=== PATIENT | male | born 1955 | race Caucasian/White ===

== ENCOUNTER 2018-06-03 20:38 | Emergency (ER) | payer SELFPAY ==
--- NOTE | 2018-06-03 20:39 | PDOC ---
History of Present Illness - General History Source: Patient Exam Limitations: No Limitations - History of Present Illness Initial Comments: 06/03/18 21:07 The patient is a 63-year-old male with a past medical history significant for double hernia repair presents to the emergency department with L. groin pain. The patient reports about 2 weeks ago, and he was lifting the snow plower when he had an acute onset of L. groin pain that radiates down the L. Knee. The patient reports the pain is intermittent and sharp in quality, with the severity of 8/10. The patient reports the knee pain is aggravated with ambulation, with relief noted at resting and with Advil. Denies numbness, tingling, weakness, loss of sensation, chest pain or shortness of breath. The patient reports at baseline he usually has high blood pressure, which he denies following up for. Allergies: Social history: 4 glasses of wine a day, denies the use of tobacco or drugs. Medication: Baby ASA, Vitamin C, fish oil. PCP: Dr. Matson. <Yuly Concepcion - Last Filed: 06/03/18 21:07> - General History Source: Patient Exam Limitations: No Limitations <Verna Torres - Last Filed: 06/03/18 23:30> - General Chief Complaint: Pain Stated Complaint: GROIN PAIN Time Seen by Provider: 06/03/18 20:39 Past History <Yuly Concepcion - Last Filed: 06/03/18 21:07> <Verna Torres - Last Filed: 06/03/18 23:30> - Past Medical History Allergies/Adverse Reactions: Allergies Allergy/AdvReac Type Severity Reaction Status Date / Time No Known Allergies Allergy Unverified 06/03/18 20:39 Home Medications: Ambulatory Orders Amoxicillin/Potassium Clav [Augmentin 875-125 Tablet] 1 each PO Q8H 10 Days #30 tablet 06/03/18 Ascorbate Calcium [Vitamin C] 500 mg PO DAILY 06/03/18 Aspirin Coated [Ecotrin -] 81 mg PO DAILY 06/03/18 Lidocaine 5% Patch [Lidoderm Patch -] 1 patch TP DAILY PRN #30 patch 06/03/18 Methocarbamol [Robaxin -] 500 mg PO TID PRN #30 tablet 06/03/18 Naproxen Sodium 220 mg PO BID PRN #30 tablet 06/03/18 [place]-3/Dha/Epa/Fish Oil [Fish Oil 1,000 mg Softgel] 1 each PO DAILY 06/03/18 traMADol HCL [Ultram] 50 mg PO Q8H PRN #15 tablet MDD 3 06/03/18 Review of Systems - Review of Systems Able to Perform ROS?: Yes Comments:: 06/03/18 21:08 Constitutional - Pt denies Fever, Chills, weakness, HEENT: denies vision changes, sore throat Respiratory: Denies cough, sob, hemoptysis Cardiac: denies chest pain, palpitations, lightheadedness, leg swelling Abd/GI: +L. Groin pain. denies abd pain, nausea, vomiting, blood per rectum, melena, diarrhea : denies dysuria, frequency, discharge Musculoskeletal - +left knee pain. denies back pain, joint swelling skin - denies bruising, erythema, rash neurological: denies headache, numbness, focal weakness, tingling, ataxia, weakness hematologic: denies anemia, easy bruising, easy bleeding <Yuly Concepcion - Last Filed: 06/03/18 21:07> *Physical Exam - Vital Signs Last Vital Signs Temp Pulse Resp BP Pulse Ox 98.2 F 93 H 16 176/107 H 99 06/03/18 20:41 06/03/18 20:41 06/03/18 20:41 06/03/18 20:41 06/03/18 20:41 - Physical Exam Comments: 06/03/18 21:08 GENERAL: The patient is in no acute distress. ENT: Ears normal, nares patent, oropharynx clear without exudates. Moist mucous membranes. NECK: Normal range of motion, supple, no nuchal rigidity LUNGS: Breath sounds equal, clear to auscultation bilaterally. No wheezes, and no crackles. HEART: 3/6 aortic murmur, regular rate and rhythm, normal S1 and S2 without murmur, rub or gallop. ABDOMEN: soft, minimal tenderness in the LLQ, some tenderness in the groin, no bulging or hernia palpated, no testicular tenderness or swelling. EXTREMITIES: No femur or thigh tenderness. L. knee tenderness able to range with no limitation, no knee swelling or bruising. NEUROLOGICAL: Cranial nerves II through XII grossly intact. Normal speech. No focal neurological deficits. SKIN: Warm, Dry, normal turgor, no rashes or lesions noted. 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 Pt states pain was initially intermittent but then became more consistent Pain is described as sharp, severe, radiating into his left leg He is concerned that he may have a recurrent hernia s/p lifting that machine On exam: RRR, Aortic murmur Lungs clear LLQ abd tenderness (mild), no masses palpated Left groin tenderness, no hernias palpated Left testicle non tender, no swelling No rash Left thigh non tender Left knee no swelling, no bruising, no deformities, no erythema ROM nml Stable to anterior and posterior drawer Pt ambulatory with no limp Would like to evaluate for recurrent hernia with CT scan Would like to do a set of labs as this patient does not go to the doctor's office Would like to do x ray knee Pt at this point is refusing knee xray, CT, labs He would like to go home 06/03/18 21:01 I have discussed everything with patient again He is willing to stay for a work up 06/03/18 21:31 Laboratory Tests 06/03/18 21:00 Urine Blood Negative Urine Nitrite Negative Ur Leukocyte Esterase Negative 06/03/18 21:31 Knee xray no fracture or dislocation noted 06/03/18 21:38 Laboratory Tests 06/03/18 21:00 WBC 9.0 Hgb 15.9 Hct 48.8 Plt Count 213 06/03/18 21:44 Laboratory Tests 06/03/18 21:00 BUN 18 Creatinine 0.9 06/03/18 23:08 CT: HISTORY: Left lower quadrant pain COMPARISON: None. FINDINGS: There is no free air. There is mild hepatic steatosis and hepatomegaly. There are no obvious gallstones. There is no hydronephrosis. There are no renal calculi. There are small bilateral renal cysts *There are multiple sigmoid diverticuli. There is a segment of thickened sigmoid colon with adjacent pericolonic inflammatory stranding. Findings compatible with acute sigmoid diverticulitis. The appendix is normal in size. There is no evidence of appendicitis. Urinary bladder is unremarkable. There are no bladder calculi Call placed to the radiologist re: this reading to see if there is possibly an inguinal hernia Dr. Gordillo Will discharge to home No hernia appreciated Radiologist reads sigmoid diverticulitis will give Augmentin (pt drinks 4 glassses of wine daily, will avoid flagyl) Will discharge to home <Verna Torres - Last Filed: 06/03/18 23:30> *DC/Admit/Observation/Transfer - Attestations Scribe Attestion: 06/03/18 21:08 Documentation prepared by Yuly Concepcion, acting as medical record coder for Verna Torres MD. <Yuly Concepcion - Last Filed: 06/03/18 21:07> - Discharge Dispostion Decision to Admit order: No <Verna Torres - Last Filed: 06/03/18 23:30> Diagnosis at time of Disposition: Inguinal hernia, left Groin strain Qualifiers: Encounter type: initial encounter Laterality: left Qualified Code(s): S76.212A - Strain of adductor muscle, fascia and tendon of left thigh, initial encounter Diverticulitis large intestine Qualifiers: Diverticulitis bleeding: without bleeding Diverticulitis complication: without perforation or abscess Qualified Code(s): K57.32 - Diverticulitis of large intestine without perforation or abscess without bleeding - Discharge Dispostion Disposition: HOME Condition at time of disposition: Stable - Referrals Referrals: Mey Andre DO [Staff Physician] - Chun Sapp MD [Staff Physician] - - Patient Instructions Printed Discharge Instructions: DI for Groin Strain, DI for Diverticulitis, DI for Groin Hernia, DI for Knee Pain Additional Instructions: Thank you for coming in to the ER today your groin pain is likely the result of a groin strain after lifting the snow plow Please avoid heavy lifting until you are feeling better Please take Naproxen (with food or milk) in addition to Robaxin and Ultram you can apply a lidoderm patch to the area that is painful Your hernia contains fat only, no intestine (this was not discussed on your CT read) please review your CT scan it demonstrates diverticulitis you should take the antibiotics prescribed Please take a probiotic with the antibiotics - like Align or yogurt or OTC lactobacillus you MUST follow up with your 1) Primary Care physician for your Elevated blood pressure 2) The GI doctor for management of your diverticulitis 3) the orthopedist (if you want) for the knee pain
[2018-06-03 21:00] VITALS: BP 176/107; PULSE 93; TEMP 98.2; BMI 31.4
[2018-06-03] MEDS ORDERED: traMADol HCL 50 MG TABLET PO ONE (21:00)
[2018-06-03] MEDS ORDERED: SODIUM CHLORIDE 1,000 ML IV SCH (21:00)
[2018-06-03] MEDS ORDERED: traMADol HCL 50 MG TABLET ONE (21:02)
[2018-06-03 21:32] LABS: BASO % 1.1 % (0-2.0); EOS % 3.8 % (0-4.5); HEMATOCRIT 48.8 % (35.4-49); HEMOGLOBIN 15.9 GM/dl (11.7-16.9); LYMPH % 25.4 % (8-40); MCH 29.8 pg (25.7-33.7); MCHC 32.7 g/dl (32.0-35.9); MEAN CELL VOLUME 91.2 fl (80-96); MEAN PLT VOLUME 8.4 fl (7.5-11.1); MONO % 11.1 % (3.8-10.2); NEUT % 58.6 % (42.8-82.8); PLATELET COUNT 213 K/MM3 (134-434); RBC 5.35 M/mm3 (4.00-5.60)
[2018-06-03 21:39] LABS: ALK PHOS 64 U/L (45-117); ANION GAP 10 MMOL/L (8-16); BILIRUBIN,TOTAL 0.8 mg/dl (0.2-1); BLOOD UREA NITROGEN 18 mg/dl (7-18); CALCIUM 9.7 mg/dl (8.5-10); CHLORIDE 101 mmol/L (98-107); CO2 27 mmol/L (21-32); CREATININE 0.9 mg/dl (0.55-1.3); GLUCOSE,RANDOM 125 mg/dl (74-106); POTASSIUM 4.1 mmol/L (3.5-5.1); SGOT/AST 19 U/L (15-37); SGPT/ALT 21 U/L (13-61); SODIUM 138 mmol/L (136-145); TOT PROT 6.9 g/dl (6.4-8.2)
== END 2018-06-03 23:37 | disposition home or self-care (01) ==
LOC: FER 20:38
PROC: 3E0337Z Introduction of Electrolytic and Water Balance Substance into Peripheral Vein, Percutaneous Approach (ICD-10-PCS; principal; 2018-06-03)
DX: S76.212A Strain of adductor muscle, fascia and tendon of left thigh, initial encounter (principal); K57.32 Diverticulitis of large intestine without perforation or abscess without bleeding; K40.90 Unilateral inguinal hernia, without obstruction or gangrene, not specified as recurrent; X58.XXXA Exposure to other specified factors, initial encounter; Y93.89 Activity, other specified; Y92.89 Other specified places as the place of occurrence of the external cause
CPT/HCPCS: 36415; 73562-TC-LT-FY; 74177-TC; 80053; 81003; 85025; 87086; 99282-25; J7030

== ENCOUNTER 2022-01-26 23:18 | Emergency (ER) | payer OTHER ==
[2022-01-26 23:27] VITALS: BP 165/102; PULSE 102; RESP 18; TEMP 97.8; BMI 32.0
== END 2022-01-26 23:39 | disposition home or self-care (01) ==
LOC: FER 23:18
DX: R22.0 Localized swelling, mass and lump, head (principal)
CPT/HCPCS: 99282-25

== ENCOUNTER 2022-02-01 00:36 | Emergency (ER) | payer OTHER ==
[2022-02-01] MEDS ORDERED: IBUPROFEN 600 MG TABLET (FP) PO ONE ×2 (01:01→02:00)
[2022-02-01 01:53] LABS: BASO % 0.6 % (0-2.0); EOS % 1.1 % (0-4.5); HEMATOCRIT 44.8 % (35.4-49); HEMOGLOBIN 14.8 GM/dL (11.7-16.9); LYMPH % 34.3 % (8-40); MCH 28.3 pg (25.7-33.7); MEAN CELL VOLUME 85.9 fl (80-96); MEAN PLT VOLUME 7.4 fl (7.5-11.1); MONO % 7.3 % (3.8-10.2); NEUT % 56.7 % (42.8-82.8); PLATELET COUNT 266 10^3/uL (134-434); RBC 5.21 M/mm3 (4.00-5.60); WHITE BLOOD COUNT 10.6 K/mm3 (4.0-10.0)
[2022-02-01 02:09] LABS: CALCIUM 9.8 mg/dL (8.5-10.1)
[2022-02-01 02:10] LABS: ALBUMIN 3.7 g/dl (3.4-5.0); BLOOD UREA NITROGEN 24.3 mg/dL (7-18)
[2022-02-01 02:13] LABS: CREATININE 1.4 mg/dL (0.55-1.3)
[2022-02-01 02:14] LABS: BILIRUBIN,TOTAL 0.4 mg/dL (0.2-1); TOT PROT 7.3 g/dl (6.4-8.2)
[2022-02-01] MEDS ORDERED: metFORMIN HCL 500 MG TABLET (FP) PO ONE (02:23)
[2022-02-01] MEDS ORDERED: LACTATED RINGERS SOLUTION 1,000 ML/1,000 ML INFUS.BAG IV ONE (02:25)
[2022-02-01] MEDS ORDERED: metFORMIN HCL 500 MG TABLET (FP) ONE (02:42)
[2022-02-01 03:06] VITALS: BP 154/110; PULSE 96; RESP 18; TEMP 98; BMI 31.5
[2022-02-01] MEDS ORDERED: ASPIRIN 81 MG CHEWABLE TABLETS PO ONE ×2 (04:22→04:24)
[2022-02-01] MEDS ORDERED: LISINOPRIL 5 MG TABLET PO ONE (04:22)
[2022-02-01] MEDS ORDERED: predniSONE 20 MG TABLET (UD) PO ONE (04:23)
[2022-02-01] MEDS ORDERED: ASPIRIN 81 MG CHEWABLE TABLETS ONE (04:28)
[2022-02-01] MEDS ORDERED: LISINOPRIL 5 MG TABLET ONE (04:29)
[2022-02-01] MEDS ORDERED: predniSONE 20 MG TABLET (UD) ONE (04:29)
== END 2022-02-01 04:51 | disposition home or self-care (01) ==
LOC: FER 00:36
DX: R22.1 Localized swelling, mass and lump, neck (principal)
CPT/HCPCS: 0241U-QW; 36415; 70490-TC; 80053; 85025; 86308; 87651; 99285-25

== ENCOUNTER 2022-08-23 21:08 | Emergency (ER) | payer OTHER ==
[2022-08-23 21:29] VITALS: PULSE 85; RESP 16; TEMP 97.9; BMI 30.1
[2022-08-23 22:23] LABS: HEMOGLOBIN 15.6 G/dL (11.7-16.9); MCH 32.2 pg (25.7-33.7); MCHC 33.8 g/dl (32.0-35.9); MEAN CELL VOLUME 95.2 fl (80-96); MEAN PLT VOLUME 7.9 fl (7.5-11.1); PLATELET COUNT 228.6 10^3/uL (134-434); RBC 4.83 10^6/uL (4.00-5.60); RDW 14.9 % (11.9-15.9); WHITE BLOOD COUNT 11.4 10^3/uL (4.0-10.8)
[2022-08-23 22:29] VITALS: BP 158/93
[2022-08-23 22:45] LABS: ALBUMIN 4.3 g/dl (3.4-5.0); BILIRUBIN,TOTAL 0.4 mg/dl (0.2-1); BLOOD UREA NITROGEN 18.1 mg/dl (7-18); CALCIUM 9.4 mg/dl (8.5-10.1); CREATININE 1.1 mg/dl (0.6-1.3); POTASSIUM 3.9 mmol/L (3.5-5.1); SGOT/AST 13.9 U/L (15-37); SGPT/ALT 12.9 U/L (7-52); TOT PROT 6.5 g/dl (6.4-8.2)
[2022-08-23 22:56] LABS: PLATELET ESTIMATE ADEQUATE
[2022-08-23] MEDS ORDERED: SODIUM CHLORIDE 1,000 ML IV STA (22:59)
[2022-08-23] MEDS ORDERED: AMOX TR/POT CLAV 875MG/125MG TABLETS (FP) PO ONE (23:00)
[2022-08-23] MEDS ORDERED: AMOX TR/POT CLAV 875MG/125MG TABLETS (FP) ONE (23:01)
== END 2022-08-23 23:35 | disposition home or self-care (01) ==
LOC: FER 21:08
PROC: 3E0337Z Introduction of Electrolytic and Water Balance Substance into Peripheral Vein, Percutaneous Approach (ICD-10-PCS; principal; 2022-08-23)
DX: R10.30 Lower abdominal pain, unspecified (principal); R19.7 Diarrhea, unspecified; K57.32 Diverticulitis of large intestine without perforation or abscess without bleeding
CPT/HCPCS: 36415; 80053; 81003; 85027; 99284-25